=== PATIENT | male | born 1990 | race Caucasian/White ===

== ENCOUNTER 2016-08-26 19:48 | Inpatient (IN) | payer BC ==
[~2016-08-26] VITALS: Ht 188 cm; Wt 77.6 kg
[2016-08-26 20:01] VITALS: BP_SYST 150
[2016-08-26 21:52] LABS: SALICYLATE 5 mg/dL (3-30)
[2016-08-26 21:54] LABS: ACETAMINOPHEN < 1 ug/mL (1-30); ALCOHOL, BLOOD < 3 mg/dL (<10)
[2016-08-26 22:48] LABS: WHITE BLOOD COUNT (AUTO) 9.2 K/uL (4.8-10.8)
[2016-08-26 22:49] LABS: BASOPHILS % (AUTO) 0.5 % (0.0-2.0); EOSINOPHILS % (AUTO) 0.6 % (0.0-4.0); HEMATOCRIT 39.6 % (36-54); HEMOGLOBIN 13.2 g/dL (14.0-18.0); LYMPHOCYTES % (AUTO) 23.5 % (20.5-51.5); MEAN CORPUSCULAR HEMOGLOBIN 32 pg (27-31); MEAN CORPUSCULAR HGB CONC 33 % (32-36); MEAN CORPUSCULAR VOLUME 96 fL (79.0-98.0); MONOCYTES % (AUTO) 5.3 % (1.7-9.3); NEUTROPHILS # (AUTO) 6.4 K/uL (1.8-7.7); NEUTROPHILS % (AUTO) 70.1 % (40.0-70.0); PLATELET COUNT (AUTO) 280 K/uL (130-430); RED BLOOD CELL COUNT(AUTO) 4.13 MIL/uL (4.2-6.2); RED CELL DISTRIBUTION WIDTH 11.8 % (9.0-15.0)
[2016-08-26 22:50] LABS: EOSINOPHILS # (AUTO) 0.1 K/uL (0.0-0.4); LYMPHOCYTES # (AUTO) 2.2 K/uL (1.0-5.5); MONOCYTES # (AUTO) 0.5 K/uL (0.0-1.0)
[2016-08-26 22:53] LABS: CALCIUM 8.8 mg/dL (8.4-11.0); CREATININE 1.31 mg/dL (0.55-1.30); POTASSIUM 3.6 mmol/L (3.5-5.1)
[2016-08-26 22:57] LABS: ALBUMIN 4.4 g/dL (3.4-4.8); TOTAL BILIRUBIN 0.2 mg/dL (0.0-1.0); TOTAL PROTEIN, SERUM 7.3 g/dL (6.4-8.3)
[2016-08-26] MEDS ORDERED: LR 1,000 ML IV ONE (23:15)
[2016-08-26 23:35] VITALS: BP_SYST 122
[2016-08-27 04:26] VITALS: BP_SYST 115
[2016-08-27] MEDS: INSULIN REGULAR, HUMAN 100 UNITS/ML, 10 ML VIAL (novoLIN R) SUBCUT PRN ×4 (06:29→20:33)
[2016-08-27 07:26] LABS: BARBITURATE, URINE NEGATIVE (NEG <=200); BENZODIAZEPINE, URINE NEGATIVE (NEG <=150); CANNABINOID, URINE POSITIVE (NEG <=50); COCAINE, URINE NEGATIVE (NEG <=150); METHAMPHETAMINES SCREEN,URINE NEGATIVE (NEG <=500); URINE AMPHETAMINE NEGATIVE (NEG <=500); URINE METHADONE NEGATIVE (NEG <=200)
[2016-08-27 07:27] LABS: OPIATE, URINE NEGATIVE (NEG <=100); PHENCYCLIDINE SCREEN,URINE NEGATIVE (NEG <=25); UR TRICYCLIC ANTIDEPRESSANTS NEGATIVE (NEG <=300); URINE OXYCODONE SCREEN NEGATIVE (NEG <=100); URINE PROPOXYPHENE SCREEN NEGATIVE (NEG <=300)
[2016-08-27 08:01] VITALS: BP_SYST 123
[2016-08-27] MEDS ORDERED: ASPIRIN 325 MG TABLET PO ONE (10:15)
[2016-08-27] MEDS ORDERED: GLUCOSE 15 GM GEL (in 37.5 GM TUBE) PO PRN ×2 (10:15)
[2016-08-27] MEDS ORDERED: DEXTROSE 50%-WATER 50 ML DISP.SYRIN IVP PRN ×2 (10:15)
[2016-08-27 10:35] LABS: BASOPHILS % (AUTO) 0.6 % (0.0-2.0); EOSINOPHILS # (AUTO) 0.1 K/uL (0.0-0.4); EOSINOPHILS % (AUTO) 2.1 % (0.0-4.0); HEMATOCRIT 39.8 % (36-54); HEMOGLOBIN 13.4 g/dL (14.0-18.0); LYMPHOCYTES # (AUTO) 1.6 K/uL (1.0-5.5); LYMPHOCYTES % (AUTO) 23.8 % (20.5-51.5); MEAN CORPUSCULAR HEMOGLOBIN 33 pg (27-31); MEAN CORPUSCULAR HGB CONC 34 % (32-36); MEAN CORPUSCULAR VOLUME 96 fL (79.0-98.0); MONOCYTES # (AUTO) 0.4 K/uL (0.0-1.0); MONOCYTES % (AUTO) 6.6 % (1.7-9.3); NEUTROPHILS # (AUTO) 4.5 K/uL (1.8-7.7); NEUTROPHILS % (AUTO) 66.9 % (40.0-70.0); PLATELET COUNT (AUTO) 262 K/uL (130-430); RED BLOOD CELL COUNT(AUTO) 4.13 MIL/uL (4.2-6.2); RED CELL DISTRIBUTION WIDTH 11.7 % (9.0-15.0); WHITE BLOOD COUNT (AUTO) 6.6 K/uL (4.8-10.8)
[2016-08-27] MEDS: levETIRAcetam 500 MG in NS 100 ML IV SCH ×2 (10:36→20:44)
[2016-08-27 10:52] LABS: CALCIUM 8.8 mg/dL (8.4-11.0); CREATININE 1.11 mg/dL (0.55-1.30); POTASSIUM 4.4 mmol/L (3.5-5.1)
[2016-08-27 11:07] LABS: ALBUMIN 4.2 g/dL (3.4-4.8); THYROID STIMULATING HORMONE 0.8 uIu/mL (0.34-4.82); TOTAL BILIRUBIN 0.5 mg/dL (0.0-1.0); TOTAL PROTEIN, SERUM 7.1 g/dL (6.4-8.3)
[2016-08-27 11:13] VITALS: BP_SYST 124
[2016-08-27] MEDS ORDERED: GADOPENTETATE DIMEGLUMINE 15 ML VIAL IV ONE (13:31)
[2016-08-27 16:36] VITALS: BP_SYST 121
[2016-08-27 19:30] VITALS: BP_SYST 117
[2016-08-27 19:51] LABS: CHOLESTEROL 137 mg/dL (<200); HDL CHOLESTEROL 44 mg/dL (>45); LDL CHOLESTEROL 72 mg/dL (<100); TRIGLYCERIDES 118 mg/dL (30-150)
[2016-08-27 23:10] VITALS: BP_SYST 103
[2016-08-28 03:44] VITALS: BP_SYST 95
[2016-08-28] MEDS: INSULIN REGULAR, HUMAN 100 UNITS/ML, 10 ML VIAL (novoLIN R) SUBCUT PRN ×2 (05:46→12:10)
[2016-08-28] MEDS: levETIRAcetam 500 MG in NS 100 ML IV SCH (08:37)
[2016-08-28] MEDS ORDERED: ASPIRIN 325 MG TABLET PO SCH (09:00)
[2016-08-28] MEDS ORDERED: IOHEXOL 100 ML IV ONE (10:00)
[2016-08-28] MEDS ORDERED: DIATR MEGLU/DIATRIZ SOD 30 ML SOLUTION PO ONE (10:01)
[2016-08-28 12:40] VITALS: BP_SYST 111
[2016-08-28 17:56] VITALS: BP_SYST 110
[2016-08-28 18:40] VITALS: BP_SYST 110
[2016-08-28] MEDS ORDERED: levETIRAcetam 500 MG TABLET PO SCH (21:00)
== END 2016-08-28 18:45 | disposition home or self-care (01) | DRG 101 ==
LOC: SED 19:48 → STU 23:12
PROVIDERS: ADMIT Internal Medicine Hospice and Palliative Medicine; ATTEND Internal Medicine Hospice and Palliative Medicine
DX: R56.9 Unspecified convulsions (principal); R53.1 Weakness; E10.9 Type 1 diabetes mellitus without complications; G83.9 Paralytic syndrome, unspecified; F12.90 Cannabis use, unspecified, uncomplicated; F32.9 Major depressive disorder, single episode, unspecified; Z79.4 Long term (current) use of insulin
CPT/HCPCS: 36415; 70450-TC; 70496; 70498; 70553; 80053; 80061; 80307; 82962; 84443-TC; 85025; 93005; 93306; 99285; A9579; G0480; G0481; G0482; J1815; J1953; J7040; J7120; Q9964; Q9967